=== PATIENT | female | born 1990 | race Two or more races ===

== ENCOUNTER 2017-04-03 14:16 | Outpatient (CLI) | payer SELFPAY ==
[2017-04-03 15:05] LABS: APPEARANCE,URINE CLOUDY; BILIRUBIN,URINE NEGATIVE (NEGATIVE); GLUCOSE, URINE NEGATIVE (NEGATIVE); KETONES,URINE NEGATIVE (NEGATIVE); LEUKOCYTE ESTERASE,URINE SMALL (NEGATIVE); NITRITE,URINE NEGATIVE (NEGATIVE); PROTEIN,URINE NEGATIVE (NEGATIVE); URINE SPECIFIC GRAVITY 1.013; UROBILINOGEN,URINE NEGATIVE mg/dL (<2.0)
[2017-04-03 15:24] LABS: URINE BARBITURATES SCREEN NEGATIVE; URINE METHADONE SCREEN NEGATIVE; URINE OPIATES LOW NEGATIVE; URINE PHENCYCLIDINE SCREEN NEGATIVE
[2017-04-03 16:34] LABS: CHLAM PCR NOT DETECTED (NOT DETECT)
== END 2017-04-03 17:21 | disposition home or self-care (01) ==
LOC: LC 14:16
PROVIDERS: ATTEND Student in an Organized Health Care Education/Training Program
DX: Z34.83 Encounter for supervision of other normal pregnancy, third trimester (principal); Z3A.36 36 weeks gestation of pregnancy
CPT/HCPCS: 59025; 80307; 81005; 87081; 87086; 87491; 87591

== ENCOUNTER 2017-05-04 23:41 | Outpatient (CLI) | payer SELFPAY ==
[2017-05-05 00:40] LABS: AMNISURE (ROM) NEGATIVE (NEGATIVE)
[2017-05-05 00:43] LABS: APPEARANCE,URINE SLIGHTLY-CLOUDY; BILIRUBIN,URINE NEGATIVE (NEGATIVE); CALCIUM OXALATE CRYSTALS,URINE FEW /HPF; GLUCOSE, URINE NEGATIVE (NEGATIVE); KETONES,URINE NEGATIVE (NEGATIVE); LEUKOCYTE ESTERASE,URINE TRACE (NEGATIVE); NITRITE,URINE NEGATIVE (NEGATIVE); PROTEIN,URINE 30 mg/dL (NEGATIVE); URINE SPECIFIC GRAVITY 1.028; UROBILINOGEN,URINE NEGATIVE mg/dL (<2.0)
[2017-05-05 00:56] LABS: URINE BARBITURATES SCREEN NEGATIVE; URINE METHADONE SCREEN NEGATIVE; URINE OPIATES LOW NEGATIVE; URINE PHENCYCLIDINE SCREEN NEGATIVE
--- NOTE | 2017-05-05 01:36 | Non Stress Test Report ---
Non Stress Test Datetime Report Generated by CPN: 05/05/2017 01:36 DEMOGRAPHIC EGA NST: 36.2 INDICATION Indication for Study: Other Indication for Study (NST) Other: labor check MONITORING Monitor Explained: Monitor Explained; Test Explained; Patient Verbalized Understanding Time on Monitor: 04/03/2017 14:42 Time off Monitor: 04/03/2017 15:44 NST Duration: 62 NST INTERVENTIONS NST Interventions: PO Hydration; Reposition Patient BABY A: [id number] BABY A Movement : Present Contraction Frequency : OCC Accelerations : 15X15 Variability : Moderate 6-25bpm NST Review: Meets Criteria for Reactive NST NST Review and Verified By : K Jaspreet RN NST Results: Reactive NST REPORT Report Trigger: Send Report
--- NOTE | 2017-05-05 01:59 | Non Stress Test Report ---
Non Stress Test Datetime Report Generated by CPN: 05/05/2017 01:59 DEMOGRAPHIC EGA NST: 40.5 INDICATION Indication for Study: Other Indication for Study (NST) Other: Suspected rupture of membranes MONITORING Monitor Explained: Monitor Explained; Test Explained; Patient Verbalized Understanding Time on Monitor: 05/04/2017 23:55 Time off Monitor: 05/05/2017 01:21 NST Duration: 86 NST INTERVENTIONS NST Interventions: PO Hydration Physician Notified NST: Dr. Sarabia BABY A Movement : Present Contraction Frequency : No contractions FHR Baseline : 140 Accelerations : 15X15 Decelerations : None Variability : Moderate 6-25bpm NST Review: Meets Criteria for Reactive NST NST Review and Verified By : Juan C LangleyJaspreet NST Results: Reactive NST REPORT Report Trigger: Send Report
== END 2017-05-05 01:30 | disposition home or self-care (01) ==
LOC: LC 23:41
PROVIDERS: ATTEND Student in an Organized Health Care Education/Training Program
PROC: 4A1HXCZ Monitoring of Products of Conception, Cardiac Rate, External Approach (ICD-10-PCS; principal; 2017-05-04)
DX: O47.1 False labor at or after 37 completed weeks of gestation (principal); O42.92 Full-term premature rupture of membranes, unspecified as to length of time between rupture and onset of labor; O48.0 Post-term pregnancy; Z3A.40 40 weeks gestation of pregnancy
CPT/HCPCS: 59025; 80307; 81001; 84112

== ENCOUNTER 2017-05-05 11:06 | Outpatient (CLI) | payer SELFPAY ==
--- NOTE | 2017-05-09 17:49 | Non Stress Test Report ---
Non Stress Test Datetime Report Generated by CPN: 05/09/2017 17:49 DEMOGRAPHIC EGA NST: 40.6 INDICATION Indication for Study: Ordered by Provider Indication for Study (NST) Other: POST DATES VITAL SIGNS Temperature - NST: 98.3 Pulse - NST: 88 RESP - NST: 18 NBPSYS NST: 115 NBPDIA NST: 59 MONITORING Monitor Explained: Monitor Explained; Test Explained; Patient Verbalized Understanding Time on Monitor: 05/05/2017 11:16 Time off Monitor: 05/05/2017 11:40 NST Duration: 24 NST INTERVENTIONS NST Interventions: PO Hydration; Reposition Patient Physician Notified NST: K CLAROS, NCM REVIEWED STRIP BABY A: [id number] BABY A Movement : Present Contraction Frequency : NONE FHR Baseline : 135 Accelerations : 15X15 Decelerations : None Variability : Moderate 6-25bpm NST Review: Meets Criteria for Reactive NST NST Review and Verified By : Nishant Oliva RN NST Results: Reactive NST REPORT Report Trigger: Send Report
== END 2017-05-05 11:43 | disposition home or self-care (01) ==
LOC: LC 11:06
PROVIDERS: ATTEND Obstetrics & Gynecology
PROC: 4A1HXCZ Monitoring of Products of Conception, Cardiac Rate, External Approach (ICD-10-PCS; principal; 2017-05-05)
DX: O48.0 Post-term pregnancy (principal); O47.1 False labor at or after 37 completed weeks of gestation; Z3A.40 40 weeks gestation of pregnancy
CPT/HCPCS: 59025

== ENCOUNTER 2017-05-09 17:53 | Inpatient (IN) | payer SELFPAY ==
[2017-05-09] MEDS ORDERED: OXYTOCIN/NORMAL SALINE 20 UNIT/1,000 ML RTUINJ IV PRN (17:57)
[2017-05-09] MEDS ORDERED: RINGERS SOLUTION,LACTATED 300 ML IV ONE (17:57)
[2017-05-09] MEDS ORDERED: DINOPROSTONE 10 MG VAGINAL INSERT.SR ONE (18:32)
[2017-05-09 18:36] LABS: ABSOLUTE EOSINOPHILS # (AUTO) 0.2 10^3/uL (0.0-0.6); ABSOLUTE LYMPHOCYTES (AUTO) 2.4 10^3/uL (0.5-4.7); ABSOLUTE MONOCYTES (AUTO) 0.8 10^3/uL (0.1-1.4); ABSOLUTE NEUT (AUTO) 9.1 10^3/uL (1.7-8.2); BASOPHILS % (AUTO) 0.3 % (0-2); EOSINOPHILS % (AUTO) 1.3 % (0-6); HEMATOCRIT 37.3 % (36.0-47.0); HEMOGLOBIN 12.7 g/dL (12.0-15.5); MEAN CORPUSCULAR HEMOGLOBIN 29.5 pg (27.0-33.4); MEAN CORPUSCULAR VOLUME 87 fl (80-97); MONOCYTES % (AUTO) 6.1 % (3-13); PLATELET COUNT 249 10^3/uL (150-450); RED CELL DISTRIBUTION WIDTH 14.6 % (11.5-14.0); SEGMENTED NEUTROPHILS % (AUTO) 73.3 % (42-78); TOTAL CELLS COUNTED % (AUTO) 100 %; WHITE BLOOD COUNT 12.4 10^3/uL (4.0-10.5)
[2017-05-09 18:38] LABS: APPEARANCE,URINE CLOUDY; BILIRUBIN,URINE NEGATIVE (NEGATIVE); COLOR,URINE YELLOW; GLUCOSE, URINE NEGATIVE (NEGATIVE); KETONES,URINE NEGATIVE (NEGATIVE); LEUKOCYTE ESTERASE,URINE MODERATE (NEGATIVE); NITRITE,URINE NEGATIVE (NEGATIVE); PROTEIN,URINE NEGATIVE (NEGATIVE); URINE SPECIFIC GRAVITY 1.005; UROBILINOGEN,URINE NEGATIVE mg/dL (<2.0)
[2017-05-09 18:54] LABS: URINE AMPHETAMINES SCREEN NEGATIVE; URINE BARBITURATES SCREEN NEGATIVE; URINE BENZODIAZEPINES SCREEN NEGATIVE; URINE COCAINE SCREEN NEGATIVE; URINE MARIJUANA (THC) SCREEN NEGATIVE; URINE METHADONE SCREEN NEGATIVE; URINE PHENCYCLIDINE SCREEN NEGATIVE
[2017-05-09] MEDS: DINOPROSTONE 10 MG VAGINAL INSERT.SR PV PRN (18:54)
[2017-05-09] MEDS: RINGERS SOLUTION,LACTATED 1,000 ML IV PRN (18:54)
--- NOTE | 2017-05-10 02:19 | L&D Progress Notes ---
PROGRESS NOTES Datetime Report Generated by CPN: 05/10/2017 02:18 PROGRESS NOTE Impression: Normal Progression of Labor Plan: Continue Present Management; Induction; Cervical Ripening Informed Consent Obtained: Vaginal Delivery; Risks, Benefits and Alternatives Discussed Informed Consent Obtained: Vaginal Delivery; Induction of Labor; Risks, Benefits and Alternatives Discussed Comment: Vertex by bedside US upon arrival. Cervidil placed at 1845. Cervidil due out and need for repeat cervical exam ar approx 0700. Will allow pt to ambulate, shower and eat and then check cervix at that time then determine plan. VAGINAL EXAM Dilatation: 0 Effacement: 0 Station: -4 Contractions: none MEMBRANES Membranes: Intact Membranes: Intact FETUS A FHR - Baseline: 125 Monitoring: External US Variability: Moderate 6-25bpm Decelerations: None FHR Category: Category I Presentation: Vertex SIGNATURE SIGNATURE: [id number];[id number] SIGNATURE: [id number] SIGNATURE: [id number] SIGNATURE: [id number] Signature: with User ID: [email or web address]
[2017-05-10] MEDS ORDERED: MISOPROSTOL 0.1 MG TABLET ONE (08:18)
[2017-05-10] MEDS ORDERED: MISOPROSTOL 0.2 MG TABLET PV ONE (08:19)
--- NOTE | 2017-05-10 08:30 | L&D Progress Notes ---
PROGRESS NOTES Datetime Report Generated by CPN: 05/10/2017 08:29 PROGRESS NOTE Impression: Reassuring Heart Rate Procedures: Sterile Vag Exam Plan: Continue Present Management Informed Consent Obtained: Vaginal Delivery Vital Signs : Reviewed; Within Normal Limits Comment: VE checked by RN, 1/50/-3, POC discussed with Dr. Lee, cytotec 25 mcg via vagina, irreg uc's, Cat 1 strip MEMBRANES Membranes: Intact FETUS A FHR - Baseline: 145 Monitoring: External US Variability: Moderate 6-25bpm Accelerations: 15X15 Decelerations: None FETUS C SIGNATURE: [id number];[id number] Assignment: Ori Lee MD Signature: with User ID: [email or web address] : with User ID: [email or web address]
--- NOTE | 2017-05-10 10:29 | L&D Progress Notes ---
PROGRESS NOTES Datetime Report Generated by CPN: 05/10/2017 10:28 PROGRESS NOTE Vital Signs : Reviewed; Within Normal Limits Comment: Cat 1 strip, no c/o FETUS C SIGNATURE: [id number];[id number] Assignment: Ori Lee MD Signature: with User ID: [email or web address] : with User ID: [email or web address]
[2017-05-10] MEDS ORDERED: DINOPROSTONE 10 MG VAGINAL INSERT.SR ONE (14:02)
[2017-05-10] MEDS: DINOPROSTONE 10 MG VAGINAL INSERT.SR PV PRN (14:04)
[2017-05-10] MEDS ORDERED: DINOPROSTONE 10 MG VAGINAL INSERT.SR PV ONE (15:00)
[2017-05-11] MEDS ORDERED: OXYTOCIN/NORMAL SALINE 20 UNIT/1,000 ML RTUINJ IV PRN ×2 (03:00→16:22)
[2017-05-11] MEDS ORDERED: OXYTOCIN/NORMAL SALINE 20 UNIT/1,000 ML RTUINJ ONE ×2 (03:18→10:24)
[2017-05-11] MEDS: RINGERS SOLUTION,LACTATED 1,000 ML IV PRN ×2 (03:27→12:02)
[2017-05-11] MEDS ORDERED: NALBUPHINE HCL INJ 10 MG/1 ML AMPULE INJ ONE (04:12)
[2017-05-11] MEDS ORDERED: PROMETHAZINE HCL INJ 25 MG/1 ML VIAL IV ONE (04:13)
[2017-05-11] MEDS ORDERED: PROMETHAZINE HCL INJ 25 MG/1 ML VIAL ONE ×2 (06:14)
[2017-05-11] MEDS ORDERED: NALBUPHINE HCL INJ 10 MG/1 ML AMPULE ONE (06:14)
[2017-05-11] MEDS ORDERED: EPHEDRINE SULFATE INJ 50 MG/1 ML AMPULE ONE (10:24)
[2017-05-11] MEDS ORDERED: LIDOCAINE 1% INJ-PF (10 MG/ML) 30 ML SDV ONE (10:24)
[2017-05-11] MEDS ORDERED: FENTANYL/BUPIVACAINE/NS/PF 200 MCG/100 ML RTUINJ EPI ONE (10:24)
[2017-05-11] MEDS ORDERED: MISOPROSTOL 0.2 MG TABLET ONE (10:24)
[2017-05-11] MEDS ORDERED: BUPIVACAINE HCL 0.25 % INJ/PF (2.5 MG/1 ML) 30 ML VIAL ONE (10:25)
[2017-05-11] MEDS ORDERED: MISOPROSTOL 0.2 MG TABLET PR ONE (17:30)
[2017-05-11] MEDS ORDERED: MAGNESIUM HYDROXIDE SUSP 30 ML UDCUP PO PRN (18:13)
[2017-05-11] MEDS ORDERED: OXYTOCIN/NORMAL SALINE 1,000 ML IV PRN (18:13)
[2017-05-11] MEDS ORDERED: PROMETHAZINE HCL INJ 25 MG/1 ML VIAL IV PRN (18:13)
[2017-05-11] MEDS ORDERED: DIPH/PERTUSS(ACELL)/TETANUS VAC/PF 0.5 ML SYR (>=10YO) IM PRN (18:13)
[2017-05-11] MEDS ORDERED: DIBUCAINE 1% OINTMENT 28 GM TP PRN (18:13)
[2017-05-11] MEDS ORDERED: DIPHENHYDRAMINE HCL 25 MG CAPSULE PO PRN (18:13)
[2017-05-11] MEDS ORDERED: ACETAMINOPHEN WITH CODEINE #3 TABLET PO PRN ×2 (18:13)
[2017-05-11] MEDS ORDERED: NA PHOS,M-B/NA PHOS,DI-BA (ADULT) 133 ML ENEMA PR PRN (18:13)
[2017-05-11] MEDS ORDERED: PROMETHAZINE HCL 25 MG TABLET PO PRN (18:13)
[2017-05-11] MEDS ORDERED: GLYCERIN/WITCH HAZEL LEAF 1 EACH MED..PAD TP PRN (18:13)
[2017-05-11] MEDS ORDERED: ACETAMINOPHEN 650 MG SUPP.RECT PR PRN (18:13)
[2017-05-11] MEDS ORDERED: PSEUDOEPHEDRINE HCL 30 MG TABLET PO PRN (18:13)
[2017-05-11] MEDS ORDERED: MEASLES,MUMPS&RUBELLA VACC/PF 0.5 ML VIAL SUBCUT PRN (18:13)
[2017-05-11] MEDS ORDERED: ZOLPIDEM TARTRATE 5 MG TABLET PO PRN (18:13)
[2017-05-11] MEDS ORDERED: BENZOCAINE/MENTHOL AEROSOL SPRAY 56 ML TOP PRN (18:13)
[2017-05-11] MEDS ORDERED: PROMETHAZINE HCL 25 MG SUPP.RECT PR PRN (18:13)
--- NOTE | 2017-05-11 18:52 | Delivery Summary ---
Del Sum A-C Datetime Report Generated by CPN: 05/11/2017 18:52 DELIVERY PERSONNEL DELIVERY PERSONNEL: [id number] Delivery Doctor:: Charo Ward CNM Labor and Delivery Nurse:: Sera Keller RN Labor and Delivery Nurse:: Key Skaggs RN Consumer Studies Professor/ORTHOPEDIC RN: Taina Cheema, ORTHOPEDIC RN II MATERNAL INFORMATION Delivery Anesthesia: Epidural Medications After Delivery: Pitocin Drip 20 Units/1000ml NSS; Other-Please Comment Meds After Delivery Comment: 1000 mcg cytotec MN Estimated Blood Loss (ml): 400 Maternal Complications: None Provider Comments: OTONIEL VIABLE MALE WITH SPONTANEOUS CRY TIGHT NUCHAL CORD, BABY SOMMERSAULTED CORD DOUBLE CLAMPED AND CUT PLACENTA EXPRESSED INTACT WITH 3VC BOGGY UTERUS-PITOCIN GIVEN WITH PRESSURE BAG AND CYTOTEC 1000MCG MN PLACED EBL 400 1ST DEGREE PERINEAL LACERATION AND RIGHT PERIURETHRAL LACERATION REPAIRED UNDER EPIDURAL ANESTHESIA MOTHER AND INFANT STABLE IN L_D #6 LABOR SUMMARY EDC: 04/29/2017 00:00 No. Babies in Womb: 1 (Annotations: Data stored by [facility] on behalf of user) Attempted: No Labor Anesthesia: Epidural LABOR INFORMATION Reason for Induction: Post Dates Onset of Labor: 05/11/2017 09:40 Complete Dilatation: 05/11/2017 15:11 Cervical Ripening Agents: Cervidil; Cytotec @ Other Ripening Agents: cervidil removed Oxytocin: Induction Group B Beta Strep: NEGATIVE Steroids Given: None Reason Steroids Not Administered: Not Applicable MEMBRANES Membranes Rupture Method: Artificial Rupture of Membranes: 05/11/2017 09:40 Length of Rupture (hr): 7.83 Amniotic Fluid Color: Clear Amniotic Fluid Amount: Small Amniotic Fluid Odor: Normal STAGES OF LABOR Stage 1 hr: 5 Stage 1 min: 31 Stage 2 hr: 2 Stage 2 min: 19 Stage 3 hr: 0 Stage 3 min: 13 Total Time in Labor hr: 8 Total Time in Labor min: 3 VAGINAL DELIVERY Laceration #1: Perineal Laceration Extension #1: First Degree Laceration #2: Periurethral Laceration Extension #2: N/A Laceration Repair: Yes Sponge Count Correct: N/A Sharps Count Correct: N/A CSECTION DELIVERY Primary Indication: N/A Secondary Indication: N/A CSection Incidence: N/A Labor: N/A Elective: N/A CSection Incision: N/A BABY A INFORMATION Infant Delivery Date/Time: 05/11/2017 17:30 Method of Delivery: Vaginal Born in Route : No : N/A Forceps: N/A Vacuum Extraction: N/A Shoulder Dystocia : No PRESENTATION/POSITION BABY A Presentation: Cephalic Cephalic Presentation: Vertex Vertex Position: Right Occipital Anterior Breech Presentation: N/A PLACENTA INFORMATION BABY A Placenta Delivery Time : 05/11/2017 17:43 Placenta Method of Delivery: Expressed Placenta Status: Delivered SCORES BABY A Heart Rate 1 min: >100 bpm Resp Effort 1 min: Good Cry Reflex Irritability 1 min: Cough or Sneeze or Pulls Away Muscle Tone 1 min: Active Motion Color 1 min: Body [place], Extremities Blue Resuscitation Effort 1 min: Tactile Stimulation SCORE 1 MIN: 9 Heart Rate 5 min: >100 bpm Resp Effort 5 min: Good Cry Reflex Irritability 5 min: Cough or Sneeze or Pulls Away Muscle Tone 5 min: Active Motion Color 5 min: Body [place], Extremities Blue SCORE 5 MIN: 9 INFANT INFORMATION BABY A Gestational Age at Delivery: 41.5 Gestational Status: Late Term- 41- 41.6 Weeks Outcome : Liveborn Infant Condition : Stable Sex: Male IDENTIFICATION BABY A Verification Date/Time: 05/11/2017 17:45 ID Band Number: [id number] Mother's Name Verified: Yes RN Verifying Infant: B Baidy RN/ D Bellavance RN WEIGHT/LENGTH BABY A Birthweight (gm): 3020 Infant Weight (lb): 6 Weight (oz): 11 Length (in): 20.00 Infant Length (cm): 50.80 CORD INFORMATION BABY A No. Cord Vessels: 3 Nuchal Cord : Around Neck x1, Tight Cord Blood Taken: Yes-For Storage (Mom's Blood type +) Suction: None ASSESSMENT BABY A Complications: None Physical Findings at Delivery: Within Normal Limits Respirations: Appears Normal Skin to Skin: Yes Surgery Aid/ALS Called : No Care By: B Baidy RN Transferred To: Remains with Mother BABY B INFORMATION : N/A SIGNATURES Assignment: Sabrina Miller MD Signature: with User ID: [email or web address] : with User ID: [email or web address] : I was personally available for consultation and serving as supervising physician for the MLP.
--- NOTE | 2017-05-11 19:14 | Admission Physical ---
Datetime Report Generated by [facility]: 05/11/2017 19:13 CURRENT ADMISSION Hx Assessment: The History has been Reviewed and is Current Chief Complaint: Scheduled Induction of Labor Indication for Induction: Postterm Indication for Induction: Postterm, Intrauterine Admit Plan: Admit to Unit; Initiate Labor Induction Protocol ALLERGIES Medication Allergies: No (Annotations: Data stored by [facility] on behalf of user) Medication Allergies: latex (05/09/2017) Medication Allergies: latex (05/05/2017) Medication Allergies: latex (04/03/2017) Latex: Latex Allergies Food Allergies: N/A Environmental Allergies: N/A OBSTETRICAL HISTORY EDC: 04/29/2017 00:00 : 1 Para: 0 Term: 0 : 0 SAB: 0 IAB: 0 Ectopic: 0 Livin Cesareans: 0 VBACs: 0 Multiple Births: 0 Gestational Diabetes: No Rh Sensitization: No Incompetent Cervix: No FAWN: No Infertility: No ART Treatment: No Uterine Anomaly: No IUGR: No Hx Previous C/S: No Macrosomia: No Hx Loss/Stillborn: No PIH: No Hx : No Placenta Previa/Abruption: No Depression/PP Depression: No PTL/PROM: No Post Hemorrhage: No Current Procedures: Ultrasound; NST Obstetrical History Comments: G1 current SEE RECORDS Alcohol: No Marijuana : No Cocaine: No Other Illicit Drugs: No Cigarettes: Former Smoker. [id number] MEDICAL HISTORY Diabetes: No Blood Transfusion: No Pulmonary Disease (Asthma, TB): No Breast Disease: No Hypertension: No [employer] Surgery: No Heart Disease: No Hosp/Surgery: No Autoimmune Disorder: No Anesthetic Complications: No Kidney Disease: Yes Abnormal Pap Smear: No Neuro/Epilepsy: No Psychiatric Disorders: No Other Medical Diseases: No Hepatitis/Liver Disease: No Significant Family History: No Varicosities/Phlebitis: No Trauma/Violence : No Thyroid Dysfunction: No Medical History Comments: Kidney infection 2005. Recurrent UTIs INFECTIOUS HISTORY Gonorrhea: No Genital Herpes: No Chlamydia: No Tuberculosis: No Syphilis: No Hepatitis: No HIV/AIDS Exposure: No Rash or Viral Illness: No HPV: No PHYSICAL EXAM General: Normal HEENT: Normal Neurologic: Normal Thyroid: Deferred Heart: Normal Lungs: Normal Breast: Deferred Back: Normal Abdomen: Normal Genitourinary Exam: Normal Extremities: Normal DTRs: Normal Pelvic Type: Adequate Vital Signs: Reviewed VAGINAL EXAM Dilatation: 0 Effacement: 0 Station: -4 Contraction Comments: none MEMBRANES Membranes: Intact Membranes: Intact Membranes: Intact FETUS A EGA: 41.3 Monitoring: External US FHR- Baseline: 145 Variability: Moderate 6-25bpm Accelerations: 15X15 Decelerations: None FHR Category: Category I Presentation: Vertex Admit Comment: 26yo at 41+3ega presents for IOL due to Post RONNIE. Intermittent care due to insurance issues after leaving . THen seen at [facility] and then seen at [facility] to schedule IOL. cvx unfavorable. Rubella Non immune. GBS negative. 1 hr GTT normal. Dating by LMp and c/w 19wks US. reviewed IOL and plan for cervidil. c/b Anemia, Obesity, headaches and limited care. PLANS FOR LABOR AND DELIVERY Labor and Delivery: None Pain Management: Natural Feeding Preference: Breast Benefit of Breast Feed Discussed: Yes Circumcision: No INFORMED CONSENT Informed Consent Obtained: Vaginal Delivery Informed Consent Obtained: Vaginal Delivery; Risks, Benefits and Alternatives Discussed Informed Consent Obtained: Vaginal Delivery; Induction of Labor; Risks, Benefits and Alternatives Discussed Signature: with User ID: [email or web address]
[2017-05-11] MEDS ORDERED: CEFTRIAXONE 1 GM/D5W RTU 1 GM/50 ML RTUPB IV ONE (21:00)
[2017-05-12] MEDS: FAMOTIDINE 20 MG TABLET PO SCH ×3 (06:32→21:11)
[2017-05-12] MEDS: IBUPROFEN 800 MG TABLET PO SCH ×4 (06:32→21:11)
[2017-05-12 07:53] LABS: HEMATOCRIT 32.7 % (36.0-47.0); HEMOGLOBIN 11.3 g/dL (12.0-15.5); MEAN CORPUSCULAR HEMOGLOBIN 29.9 pg (27.0-33.4); MEAN CORPUSCULAR HGB CONC 34.4 g/dL (32.0-36.0); MEAN CORPUSCULAR VOLUME 87 fl (80-97); PLATELET COUNT 221 10^3/uL (150-450); RED BLOOD COUNT 3.77 10^6/uL (3.72-5.28); RED CELL DISTRIBUTION WIDTH 14.3 % (11.5-14.0); WHITE BLOOD COUNT 19.1 10^3/uL (4.0-10.5)
[2017-05-12] MEDS: SENNOSIDES/DOCUSATE 8.6-50 MG 1 EACH TABLET PO SCH (10:17)
[2017-05-12] MEDS: DOCUSATE SODIUM 100 MG CAPSULE PO SCH ×2 (10:18→17:15)
[2017-05-12] MEDS: PRENATAL VITAMIN W DHA CAPSULE PO SCH (10:18)
[2017-05-12] MEDS: FERROUS SULFATE 325 MG TABLET PO SCH ×2 (10:18→17:14)
--- NOTE | 2017-05-12 18:54 | PDOC PROGRESS REPORT ---
Subjective-OB Subjective: Post Delivery Day:1 26 year old G1 now P1 s/p ppd1. Ambulating, voiding and without difficulty. Denies any needs at this time Physical Exam (OB) Vital Signs: Temp Pulse Resp BP Pulse Ox 97.9 F 98 17 109/56 L 98 05/12/17 08:19 05/12/17 08:19 05/12/17 08:19 05/12/17 08:19 05/12/17 08:19 Intake & Output 05/11/17 05/12/17 05/13/17 06:59 06:59 06:59 Intake Total 50 Balance 50 - General General Appearance: Appears well In distress: None - PIH/Pre-Eclampsia DTR's: 2 + Clonus: Negative Headache: Absent Epigastric Pain: No Visual Changes: No - Episiotomy/Laceration Site Condition: Well Approximated, Edematous - Lochia Lochia Amount: Scant < 10 ml Lochia Color: Rubra/Red - Abdomen Description: Soft, Round Hernia Present: No Fundal Description: Firm, Midline Fundal Height: u/u - u/2 - Respiratory Respiratory Status: No respiratory distress - Extremities Upper extremity: Normal inspection Lower extremities: Normal inspection - Neurological Cognition: Normal Orientation: AAOx4 - Psychological Associated symptoms: Normal affect, Normal mood Objective-Diagnostic Laboratory: 05/12/17 07:23 05/12/17 07:23 WBC 19.1 H RBC 3.77 Hgb 11.3 L Hct 32.7 L MCV 87 MCH 29.9 MCHC 34.4 RDW 14.3 H Plt Count 221 Assessment and Plan(PN) - Assessment and Plan (1) Vaginal delivery Is this a current diagnosis for this admission?: Yes Plan: routine pp care (2) Post-term , 40-42 weeks of gestation Is this a current diagnosis for this admission?: Yes Plan: delivered (3) Limited care Qualifiers: Trimester: unspecified trimester Qualified Code(s): O09.30 - Supervision of with insufficient care, unspecified trimester Is this a current diagnosis for this admission?: Yes Plan: delivered (4) Obesity complicating Qualifiers: Trimester: unspecified trimester Qualified Code(s): O99.210 - Obesity complicating , unspecified trimester Is this a current diagnosis for this admission?: Yes Plan: routine pp care - Time Spent with Patient Time with patient: Less than 15 minutes Medications reviewed and adjusted accordingly: Yes - Disposition Anticipated Discharge: Home Within: within 24 hours
[2017-05-13] MEDS: IBUPROFEN 800 MG TABLET PO SCH ×2 (06:42→13:08)
[2017-05-13 08:27] VITALS: BP 109/56
[2017-05-13] MEDS: PRENATAL VITAMIN W DHA CAPSULE PO SCH (09:29)
[2017-05-13] MEDS: DOCUSATE SODIUM 100 MG CAPSULE PO SCH (09:29)
[2017-05-13] MEDS: FERROUS SULFATE 325 MG TABLET PO SCH (09:30)
[2017-05-13] MEDS: FAMOTIDINE 20 MG TABLET PO SCH (09:30)
[2017-05-13] MEDS: SENNOSIDES/DOCUSATE 8.6-50 MG 1 EACH TABLET PO SCH (09:30)
--- NOTE | 2017-05-13 10:06 | PDOC PROGRESS REPORT ---
Subjective-OB Subjective: Post Delivery Day: 26 year old. Denies any needs at this time Doing well, no c/o, ready to go home, breast feeding, hsb at BS Physical Exam (OB) Vital Signs: Temp Pulse Resp BP Pulse Ox 97.5 F 88 16 109/56 L 100 05/13/17 09:03 05/13/17 09:03 05/13/17 09:03 05/13/17 08:00 05/13/17 09:03 Intake & Output 05/12/17 05/13/17 05/14/17 06:59 06:59 06:59 Intake Total 50 Balance 50 - PIH/Pre-Eclampsia DTR's: 2 + Clonus: Negative Headache: Absent Epigastric Pain: No Visual Changes: No - Dressing Removed: No - Bilateral Tubal Ligation Dressing Removed: No - Lochia Lochia Amount: Small 10-25 ml Lochia Color: Rubra/Red - Abdomen Description: Tender, Soft, Round Hernia Present: No Fundal Description: Firm, Midline Fundal Height: u/u - u/2 Objective-Diagnostic Laboratory: 05/12/17 07:23 Assessment and Plan(PN) - Assessment and Plan (1) Vaginal delivery Is this a current diagnosis for this admission?: Yes (2) Post-term , 40-42 weeks of gestation Is this a current diagnosis for this admission?: Yes (3) Limited care Qualifiers: Trimester: unspecified trimester Qualified Code(s): O09.30 - Supervision of with insufficient care, unspecified trimester Is this a current diagnosis for this admission?: Yes (4) Obesity (BMI 30-39.9) Is this a current diagnosis for this admission?: Yes - Time Spent with Patient Time with patient: Less than 15 minutes Medications reviewed and adjusted accordingly: Yes - Disposition Anticipated Discharge: Home Within: Other - home today
--- NOTE | 2017-05-13 10:09 | PDOC DISCHARGE SUMMARY ---
Final Diagnosis Discharge Date: 05/13/17 - Final Diagnosis (1) Vaginal delivery Is this a current diagnosis for this admission?: Yes (2) Post-term , 40-42 weeks of gestation Is this a current diagnosis for this admission?: Yes (3) Limited care Is this a current diagnosis for this admission?: Yes (4) Obesity (BMI 30-39.9) Is this a current diagnosis for this admission?: Yes Discharge Data - Discharge Medication Home Medications: Vit/Iron Fum/Folic AC [ Tablet] 1 tab PO DAILY 04/03/17 Gestational Age: 41.5 Reason(s) for Admission: Induction of Labor Procedures: Ultrasound Intrapartum Procedure(s): Spontaneous Vaginal Delivery Complication(s): Laceration-Periurethral Laceration-Degree: 1st - Data Baby 1 Male at 1 minute: 9 at 5 minutes: 9 Weight: 3.033 kg Home with Mother: Yes Complications: No - Diagnosis Test Laboratory: Temp Pulse Resp BP Pulse Ox 97.5 F 88 16 109/56 L 100 05/13/17 09:03 05/13/17 09:03 05/13/17 09:03 05/13/17 08:00 05/13/17 09:03 05/09/17 05/09/17 05/12/17 18:02 18:24 07:23 RBC 4.30 3.77 Hgb 12.7 11.3 L Hct 37.3 32.7 L Urine Opiates Screen NEGATIVE - Discharge information/Instructions Discharge Activity: Activity As Tolerated, No Lifting Over 10 Pounds, Pelvic Rest, No tub bath Discharge Diet: As Tolerated, Regular Disposition: HOME, SELF-CARE Follow [facility] with: [facility] in: 4, Weeks
== END 2017-05-13 13:25 | disposition home or self-care (01) | DRG 775 ==
LOC: LR 17:53 → 2S 05-11 19:10
PROVIDERS: ADMIT Student in an Organized Health Care Education/Training Program; ATTEND Student in an Organized Health Care Education/Training Program
PROC: 3E0P7VZ Introduction of Hormone into Female Reproductive, Via Natural or Artificial Opening (ICD-10-PCS; 2017-05-10)
PROC: 10E0XZZ Delivery of Products of Conception, External Approach (ICD-10-PCS; principal; 2017-05-11)
PROC: 0HQ9XZZ Repair Perineum Skin, External Approach (ICD-10-PCS; 2017-05-11)
PROC: 10907ZC Drainage of Amniotic Fluid, Therapeutic from Products of Conception, Via Natural or Artificial Opening (ICD-10-PCS; 2017-05-11)
PROC: 4A1HXCZ Monitoring of Products of Conception, Cardiac Rate, External Approach (ICD-10-PCS; 2017-05-13)
PROC: 3E0234Z Introduction of Serum, Toxoid and Vaccine into Muscle, Percutaneous Approach (ICD-10-PCS; 2017-05-13)
DX: O48.0 Post-term pregnancy (principal); O70.0 First degree perineal laceration during delivery; O69.1XX0 Labor and delivery complicated by cord around neck, with compression, not applicable or unspecified; O99.214 Obesity complicating childbirth; E66.9 Obesity, unspecified; O99.02 Anemia complicating childbirth; D64.9 Anemia, unspecified; Z37.0 Single live birth; Z68.38 Body mass index [BMI] 38.0-38.9, adult; Z3A.41 41 weeks gestation of pregnancy; Z23 Encounter for immunization; Z59.7 Insufficient social insurance and welfare support; Z87.891 Personal history of nicotine dependence
CPT/HCPCS: 36415; 80307; 81005; 85025; 85027; 86592; 86850; 86900; 86901; 90707; J0696; J2300; J2550; J2590; J3490